=== PATIENT | male | born 1985 | race Caucasian/White ===

== ENCOUNTER 2016-04-29 16:17 | Inpatient (IN) | payer MEDICAID ==
[~2016-04-29] VITALS: Ht 175.3 cm; Wt 91.5 kg
[~2016-04-29 16:17] MED LIST: QUET25TA PO
[2016-04-29] MEDS ORDERED: LORazepam 2 MG/ML VIAL ONE (16:22)
[2016-04-29] MEDS ORDERED: HALOPERIDOL LACTATE 5 MG/ML VIAL ONE (16:22)
[2016-04-29] MEDS ORDERED: DiphenhydrAMINE HCL 50 MG/ML VIAL ONE (16:22)
[2016-04-29] MEDS ORDERED: HALOPERIDOL LACTATE 5 MG/ML VIAL IM ONE (16:30)
[2016-04-29] MEDS ORDERED: LORazepam 2 MG/ML VIAL IM ONE (16:30)
[2016-04-29] MEDS ORDERED: DiphenhydrAMINE HCL 50 MG/ML VIAL IM ONE (16:30)
[2016-04-29 17:22] LABS: BASOPHILS % (AUTO) 0.9 % (0.0-2.0); EOSINOPHILS % (AUTO) 2.6 % (1.0-6.0); HEMATOCRIT 42.7 % (41-53); LYMPHOCYTES # (AUTO) 2.3 K/uL (1.0-4.8); LYMPHOCYTES % (AUTO) 23.6 % (22.0-44.0); MEAN CORPUSCULAR HGB CONC 32.9 G/dL (31.0-37.0); MEAN CORPUSCULAR VOLUME 85 fL (80-100); MONOCYTES % (AUTO) 10.7 % (2.0-9.0); NEUTROPHILS % (AUTO) 62.2 % (40.0-70.0); PLATELET COUNT (AUTO) 290 K/uL (150-450); RED BLOOD CELL COUNT(AUTO) 5.01 MIL/uL (4.50-5.90); RED CELL DISTRIBUTION WIDTH 14.4 % (11.5-14.5); WHITE BLOOD COUNT (AUTO) 9.7 K/uL (4.5-11.0)
[2016-04-29 17:31] LABS: ANION GAP 10 mmol/L (8-16); CALCIUM, TOTAL 9.2 mg/dL (8.8-10.5); CARBON DIOXIDE 27 mmol/L (22-29); CHLORIDE 104 mmol/L (98-107); CREATININE 0.97 mg/dL (0.60-1.30); GLOMERULAR FILTR. RATE CALC > 60 mL/min (>60); POTASSIUM 3.7 mmol/L (3.5-5.1); SODIUM SERUM 141 mmol/L (136-145); UREA NITROGEN, BLOOD 17 mg/dL (7-18)
[2016-04-29 17:38] LABS: ALANINE AMINOTRANSFERASE 32 U/L (12-78); ALBUMIN 3.9 g/dL (3.4-5.0); ASPARTATE AMINOTRANSFERASE 43 U/L (15-37); BILIRUBIN,TOTAL 0.5 mg/dL (0.1-1.0); TOTAL PROTEIN, SERUM 7.4 g/dL (6.4-8.2)
[2016-04-29] MEDS ORDERED: ZOLPIDEM TARTRATE 10 MG TABLET PO PRN (19:45)
[2016-04-29] MEDS ORDERED: PERMETHRIN 5% 60 GM CREAM TP ONE (19:45)
[2016-04-29 22:20] VITALS: BP 113/66
[2016-04-30] MEDS ORDERED: INFLUENZA VIRUS VACCINE QVS 2016-17 (3YR+)/PF 60 MCG/0.5 ML SYRINGE IM ONE (06:45)
[2016-04-30] MEDS: QUEtiapine FUMARATE 200 MG TABLET PO SCH (21:00)
[2016-05-01] MEDS: LORazepam 2 MG TABLET PO PRN (15:54)
[2016-05-01] MEDS: QUEtiapine FUMARATE 200 MG TABLET PO SCH (21:34)
[2016-05-02] MEDS: QUEtiapine FUMARATE 200 MG TABLET PO SCH (20:45)
[2016-05-03] MEDS: QUEtiapine FUMARATE 100 MG TABLET PO PRN (15:39)
[2016-05-03 17:38] VITALS: BP 122/69
[2016-05-03] MEDS: QUEtiapine FUMARATE 200 MG TABLET PO SCH (22:04)
[2016-05-04] MEDS: QUEtiapine FUMARATE 100 MG TABLET PO PRN (12:17)
[2016-05-04] MEDS: QUEtiapine FUMARATE 200 MG TABLET PO SCH (21:10)
[2016-05-05] MEDS: QUEtiapine FUMARATE 100 MG TABLET PO PRN (15:45)
[2016-05-05] MEDS: LORazepam 2 MG TABLET PO PRN (15:46)
[2016-05-05] MEDS: QUEtiapine FUMARATE 200 MG TABLET PO SCH (22:07)
[2016-05-06] MEDS: LORazepam 2 MG TABLET PO PRN ×2 (10:06→14:30)
[2016-05-06] MEDS: QUEtiapine FUMARATE 100 MG TABLET PO PRN ×2 (10:07→14:30)
[2016-05-06] MEDS: QUEtiapine FUMARATE 200 MG TABLET PO SCH (21:37)
[2016-05-07] MEDS: LORazepam 2 MG TABLET PO PRN (09:33)
[2016-05-07] MEDS: QUEtiapine FUMARATE 100 MG TABLET PO PRN (09:34)
== END 2016-05-07 11:00 | disposition home or self-care (01) | DRG 750 ==
LOC: EEVIPCON 16:18 → EMS 16:18 → MERGE 20:00 → 3EC 20:00
DX: F20.0 Paranoid schizophrenia (principal); R45.851 Suicidal ideations; Z78.1 Physical restraint status; F15.10 Other stimulant abuse, uncomplicated; F31.9 Bipolar disorder, unspecified; R79.89 Other specified abnormal findings of blood chemistry; F17.210 Nicotine dependence, cigarettes, uncomplicated; Z28.21 Immunization not carried out because of patient refusal; Z79.899 Other long term (current) drug therapy; Z59.0 Homelessness; Z98.890 Other specified postprocedural states
CPT/HCPCS: 96372; 99285; G0480; J1200; J1630; J2060

== ENCOUNTER 2016-05-13 20:39 | Inpatient (IN) | payer MEDICAID ==
[~2016-05-13] VITALS: Ht 182.9 cm; Wt 91.2 kg
[2016-05-13 20:56] LABS: BASOPHILS # (AUTO) 0.06 K/uL (0.00-0.20); BASOPHILS % (AUTO) 0.3 % (0.0-2.0); EOSINOPHILS # (AUTO) 0.07 K/uL (0.00-0.70); EOSINOPHILS % (AUTO) 0.41 % (1.0-6.0); HEMATOCRIT 44.6 % (41-53); HEMOGLOBIN 15.1 g/dL (13.5-17.5); LYMPHOCYTES # (AUTO) 2.3 K/uL (1.0-4.8); LYMPHOCYTES % (AUTO) 12.5 % (22.0-44.0); MEAN CORPUSCULAR HEMOGLOBIN 28.5 pg (26.0-34.0); MEAN CORPUSCULAR HGB CONC 33.9 G/dL (31.0-37.0); MEAN CORPUSCULAR VOLUME 84 fL (80-100); MONOCYTES # (AUTO) 0.6 K/uL (0.1-1.0); MONOCYTES % (AUTO) 3.5 % (2.0-9.0); NEUTROPHILS % (AUTO) 83.3 % (40.0-70.0); PLATELET COUNT (AUTO) 301 K/uL (150-450); RED BLOOD CELL COUNT(AUTO) 5.31 MIL/uL (4.50-5.90)
[2016-05-13 21:06] LABS: ANION GAP 7 mmol/L (8-16); CALCIUM, TOTAL 9.4 mg/dL (8.8-10.5); CARBON DIOXIDE 30 mmol/L (22-29); CHLORIDE 101 mmol/L (98-107); CREATININE 0.88 mg/dL (0.60-1.30); GLOMERULAR FILTR. RATE CALC > 60 mL/min (>60); SODIUM SERUM 138 mmol/L (136-145); UREA NITROGEN, BLOOD 9 mg/dL (7-18)
[2016-05-13 21:12] LABS: ALANINE AMINOTRANSFERASE 48 U/L (12-78); ALBUMIN 4.1 g/dL (3.4-5.0); ASPARTATE AMINOTRANSFERASE 28 U/L (15-37); BILIRUBIN,TOTAL 0.3 mg/dL (0.1-1.0); RBC MORPHOLOGY COMMENT NORMAL RBC MORPH
[2016-05-13] MEDS ORDERED: HALOPERIDOL LACTATE 5 MG/ML VIAL IM ONE (21:15)
[2016-05-13] MEDS ORDERED: DiphenhydrAMINE HCL 50 MG/ML VIAL IM ONE (21:15)
[2016-05-13] MEDS ORDERED: LORazepam 2 MG/ML VIAL IM ONE (21:15)
[2016-05-14] MEDS ORDERED: ZOLPIDEM TARTRATE 10 MG TABLET PO PRN (00:15)
[2016-05-14 00:52] VITALS: BP 115/50
[2016-05-14 08:04] VITALS: BP_SYST 104; BP_SYST 137; BP_DIAS 67; BP_DIAS 84
[2016-05-14] MEDS: LORazepam 2 MG TABLET PO PRN ×2 (09:34→16:37)
[2016-05-14] MEDS: HALOPERIDOL 5 MG TABLET PO PRN ×2 (09:34→16:37)
[2016-05-14 13:40] LABS: APPEARANCE,URINE CLEAR (CLEAR); GLUCOSE, URINE (UA) NEGATIVE (NEGATIVE); PROTEIN,URINE NEGATIVE (NEGATIVE)
[2016-05-14 13:41] LABS: ADD UA MICROSCOPIC NO; KETONES,URINE NEGATIVE (NEGATIVE); LEUKOCYTE ESTERASE ,URINE NEGATIVE (NEGATIVE); OCCULT BLOOD,URINE NEGATIVE (NEGATIVE)
[2016-05-15] MEDS: HALOPERIDOL 5 MG TABLET PO PRN ×2 (09:48→16:09)
[2016-05-15] MEDS: LORazepam 2 MG TABLET PO PRN ×3 (09:48→20:32)
[2016-05-15] MEDS ORDERED: INFLUENZA VIRUS VACCINE QVS 2016-17 (3YR+)/PF 60 MCG/0.5 ML SYRINGE IM ONE (15:30)
[2016-05-15 16:12] VITALS: BP 123/66
[2016-05-15] MEDS: QUEtiapine FUMARATE 200 MG TABLET PO SCH (20:32)
[2016-05-16] MEDS: LORazepam 2 MG TABLET PO PRN ×2 (13:09→20:26)
[2016-05-16 16:03] VITALS: BP 118/67
[2016-05-16] MEDS: QUEtiapine FUMARATE 200 MG TABLET PO SCH (20:26)
[2016-05-17] MEDS ORDERED: QUET200T PO (10:31)
[2016-05-17 16:00] VITALS: BP 132/68
[2016-05-17] MEDS: LORazepam 2 MG TABLET PO PRN (16:11)
[2016-05-17] MEDS: CEPHALEXIN MONOHYDRATE 500 MG CAPSULE PO SCH (16:11)
[2016-05-17] MEDS: HALOPERIDOL 5 MG TABLET PO PRN (16:11)
[2016-05-17] MEDS: SULFAMETHOX/TRIMETH DS 800-160 MG/TABLET PO SCH (16:11)
[2016-05-17] MEDS: QUEtiapine FUMARATE 200 MG TABLET PO SCH (20:24)
[2016-05-18 08:28] VITALS: BP 117/68
[2016-05-18] MEDS: SULFAMETHOX/TRIMETH DS 800-160 MG/TABLET PO SCH ×2 (09:15→17:13)
[2016-05-18] MEDS: CEPHALEXIN MONOHYDRATE 500 MG CAPSULE PO SCH ×2 (09:16→17:13)
[2016-05-18 16:00] VITALS: BP 116/76
[2016-05-18] MEDS: LORazepam 2 MG TABLET PO PRN (17:12)
[2016-05-18] MEDS: HALOPERIDOL 5 MG TABLET PO PRN (17:12)
[2016-05-18] MEDS: QUEtiapine FUMARATE 200 MG TABLET PO SCH (21:03)
[2016-05-19] MEDS: CEPHALEXIN MONOHYDRATE 500 MG CAPSULE PO SCH (09:40)
[2016-05-19] MEDS: LORazepam 2 MG TABLET PO PRN (09:40)
[2016-05-19] MEDS: SULFAMETHOX/TRIMETH DS 800-160 MG/TABLET PO SCH (09:40)
[2016-05-19] MEDS ORDERED: SULF1TAB42 PO (10:15)
[2016-05-19] MEDS ORDERED: CEPH-582 PO (10:16)
== END 2016-05-19 15:15 | disposition home or self-care (01) | DRG 750 ==
LOC: EDBD → EMS 20:42 → B3A 05-14 01:46
PROVIDERS: ADMIT Psychiatry & Neurology Psychiatry
DX: F20.0 Paranoid schizophrenia (principal); L02.416 Cutaneous abscess of left lower limb; F15.90 Other stimulant use, unspecified, uncomplicated; F17.210 Nicotine dependence, cigarettes, uncomplicated; Z78.1 Physical restraint status; Z28.21 Immunization not carried out because of patient refusal
CPT/HCPCS: 87070; 87081; 87205; 96372; 99285; A0429; G0480; J1200; J1630; J2060

== ENCOUNTER 2016-05-17 10:06 | Emergency (ER) | payer MEDICAID ==
[~2016-05-17] VITALS: Ht 175.3 cm; Wt 79.5 kg
[2016-05-17 10:28] VITALS: BP 139/79
[2016-05-17] MEDS ORDERED: QUET200T PO (10:31)
[2016-05-17 11:34] LABS: BASOPHILS % (AUTO) 0.6 % (0.0-2.0); EOSINOPHILS % (AUTO) 1.5 % (1.0-6.0); HEMATOCRIT 42.8 % (41-53); HEMOGLOBIN 13.9 g/dL (13.5-17.5); LYMPHOCYTES # (AUTO) 1.7 K/uL (1.0-4.8); LYMPHOCYTES % (AUTO) 14.3 % (22.0-44.0); MEAN CORPUSCULAR HEMOGLOBIN 27.6 pg (26.0-34.0); MEAN CORPUSCULAR HGB CONC 32.5 G/dL (31.0-37.0); MEAN CORPUSCULAR VOLUME 85 fL (80-100); MONOCYTES # (AUTO) 1.2 K/uL (0.1-1.0); MONOCYTES % (AUTO) 9.8 % (2.0-9.0); NEUTROPHILS # (AUTO) 8.7 K/uL (1.8-7.7); NEUTROPHILS % (AUTO) 73.8 % (40.0-70.0); PLATELET COUNT (AUTO) 312 K/uL (150-450); RED BLOOD CELL COUNT(AUTO) 5.04 MIL/uL (4.50-5.90); RED CELL DISTRIBUTION WIDTH 14.2 % (11.5-14.5); WHITE BLOOD COUNT (AUTO) 11.8 K/uL (4.5-11.0)
[2016-05-17 11:44] LABS: ANION GAP 7 mmol/L (8-16); CALCIUM, TOTAL 9.3 mg/dL (8.8-10.5); CARBON DIOXIDE 30 mmol/L (22-29); CHLORIDE 102 mmol/L (98-107); CREATININE 0.78 mg/dL (0.60-1.30); GLOMERULAR FILTR. RATE CALC > 60 mL/min (>60); POTASSIUM 4.1 mmol/L (3.5-5.1); SODIUM SERUM 139 mmol/L (136-145); UREA NITROGEN, BLOOD 10 mg/dL (7-18)
[2016-05-17 11:50] LABS: ALANINE AMINOTRANSFERASE 39 U/L (12-78); ALBUMIN 3.5 g/dL (3.4-5.0); ASPARTATE AMINOTRANSFERASE 21 U/L (15-37); BILIRUBIN,TOTAL 0.3 mg/dL (0.1-1.0); TOTAL PROTEIN, SERUM 7.8 g/dL (6.4-8.2)
[2016-05-17] MEDS ORDERED: LIDOCAINE HCL/PF 1% 2 ML VIAL IM ONE (12:30)
[2016-05-17] MEDS ORDERED: CefTRIAXone SODIUM 1 GM/VIAL IM ONE (12:30)
== END 2016-05-17 13:47 | disposition home or self-care (01) ==
LOC: EDBD → EMS 10:07
DX: L03.115 Cellulitis of right lower limb (principal); F17.210 Nicotine dependence, cigarettes, uncomplicated
CPT/HCPCS: 36415; 80053; 80307; 85025; 96372; 99284; G0480; J0696; J3490

== ENCOUNTER 2016-05-22 22:59 | Inpatient (IN) | payer MEDICAID ==
[~2016-05-22] VITALS: Ht 175.3 cm; Wt 92.3 kg
[~2016-05-22 22:59] MED LIST changes: +CEPH-582 PO; +QUET200T PO; +SULF1TAB42 PO
[2016-05-22 23:17] LABS: BASOPHILS % (AUTO) 0.6 % (0.0-2.0); EOSINOPHILS % (AUTO) 1.4 % (1.0-6.0); HEMATOCRIT 48.1 % (41-53); HEMOGLOBIN 15.7 g/dL (13.5-17.5); LYMPHOCYTES # (AUTO) 2.1 K/uL (1.0-4.8); LYMPHOCYTES % (AUTO) 16.6 % (22.0-44.0); MEAN CORPUSCULAR HEMOGLOBIN 27.3 pg (26.0-34.0); MEAN CORPUSCULAR HGB CONC 32.6 G/dL (31.0-37.0); MEAN CORPUSCULAR VOLUME 84 fL (80-100); MONOCYTES # (AUTO) 0.6 K/uL (0.1-1.0); MONOCYTES % (AUTO) 4.6 % (2.0-9.0); NEUTROPHILS # (AUTO) 9.9 K/uL (1.8-7.7); NEUTROPHILS % (AUTO) 76.8 % (40.0-70.0); PLATELET COUNT (AUTO) 500 K/uL (150-450); RED BLOOD CELL COUNT(AUTO) 5.75 MIL/uL (4.50-5.90); RED CELL DISTRIBUTION WIDTH 13.9 % (11.5-14.5); WHITE BLOOD COUNT (AUTO) 12.9 K/uL (4.5-11.0)
[2016-05-22 23:26] LABS: ANION GAP 10 mmol/L (8-16); CALCIUM, TOTAL 9.6 mg/dL (8.8-10.5); CARBON DIOXIDE 26 mmol/L (22-29); CHLORIDE 101 mmol/L (98-107); CREATININE 0.91 mg/dL (0.60-1.30); GLOMERULAR FILTR. RATE CALC > 60 mL/min (>60); POTASSIUM 4.2 mmol/L (3.5-5.1); SODIUM SERUM 137 mmol/L (136-145); UREA NITROGEN, BLOOD 3 mg/dL (7-18)
[2016-05-22 23:32] LABS: ALANINE AMINOTRANSFERASE 51 U/L (12-78); ALBUMIN 4.4 g/dL (3.4-5.0); ASPARTATE AMINOTRANSFERASE 34 U/L (15-37); BILIRUBIN,TOTAL 0.2 mg/dL (0.1-1.0); TOTAL PROTEIN, SERUM 9.1 g/dL (6.4-8.2)
[2016-05-23] MEDS ORDERED: LORazepam 2 MG/ML VIAL IM ONE ×2 (00:45→11:30)
[2016-05-23] MEDS ORDERED: DiphenhydrAMINE HCL 50 MG/ML VIAL IM ONE ×2 (00:45→11:30)
[2016-05-23] MEDS ORDERED: HALOPERIDOL LACTATE 5 MG/ML VIAL IM ONE ×2 (00:45→11:30)
[2016-05-23] MEDS: HALOPERIDOL 5 MG TABLET PO PRN ×2 (09:26→18:05)
[2016-05-23 10:03] LABS: APPEARANCE,URINE CLEAR (CLEAR); GLUCOSE, URINE (UA) NEGATIVE (NEGATIVE); OCCULT BLOOD,URINE NEGATIVE (NEGATIVE); PROTEIN,URINE NEGATIVE (NEGATIVE)
[2016-05-23 10:04] LABS: ADD UA MICROSCOPIC NO; KETONES,URINE NEGATIVE (NEGATIVE); LEUKOCYTE ESTERASE ,URINE NEGATIVE (NEGATIVE)
[2016-05-23 13:20] VITALS: BP 148/93
[2016-05-23] MEDS: ZOLPIDEM TARTRATE 10 MG TABLET PO PRN (23:15)
[2016-05-24] MEDS: HALOPERIDOL 5 MG TABLET PO PRN ×2 (07:42→16:00)
[2016-05-24] MEDS: LORazepam 2 MG TABLET PO PRN ×2 (07:42→16:00)
[2016-05-24 09:42] VITALS: BP 147/85
[2016-05-24 18:06] VITALS: BP 147/66
[2016-05-24] MEDS: QUEtiapine FUMARATE 300 MG TABLET PO SCH (22:19)
[2016-05-25 08:42] VITALS: BP 113/70
[2016-05-25 16:00] VITALS: BP 131/78
[2016-05-25] MEDS: HALOPERIDOL 5 MG TABLET PO PRN (18:45)
[2016-05-25] MEDS: LORazepam 2 MG TABLET PO PRN (18:45)
[2016-05-25] MEDS: QUEtiapine FUMARATE 300 MG TABLET PO SCH (21:12)
[2016-05-26 08:59] VITALS: BP 105/62
[2016-05-26] MEDS: LORazepam 2 MG TABLET PO PRN (15:55)
[2016-05-26] MEDS: HALOPERIDOL 5 MG TABLET PO PRN (15:56)
[2016-05-26 17:16] VITALS: BP 136/71
[2016-05-26] MEDS: QUEtiapine FUMARATE 300 MG TABLET PO SCH (20:55)
[2016-05-27 08:30] VITALS: BP 139/74
[2016-05-27] MEDS: HALOPERIDOL 5 MG TABLET PO PRN (15:38)
[2016-05-27] MEDS: LORazepam 2 MG TABLET PO PRN (15:38)
[2016-05-27 16:00] VITALS: BP 112/78
[2016-05-27] MEDS: ZOLPIDEM TARTRATE 10 MG TABLET PO PRN (20:52)
[2016-05-27] MEDS: QUEtiapine FUMARATE 300 MG TABLET PO SCH (20:52)
[2016-05-28 08:30] VITALS: BP 121/82
[2016-05-28] MEDS ORDERED: QUET300T2 PO (10:31)
== END 2016-05-28 12:30 | disposition home or self-care (01) | DRG 750 ==
LOC: EMS 23:01 → MERGE 05-23 10:43 → 3EC 05-23 10:43
DX: F25.1 Schizoaffective disorder, depressive type (principal); R45.851 Suicidal ideations; Z91.14 Patient's other noncompliance with medication regimen; I10 Essential (primary) hypertension; F17.210 Nicotine dependence, cigarettes, uncomplicated; S90.811A Abrasion, right foot, initial encounter; F15.90 Other stimulant use, unspecified, uncomplicated; J30.9 Allergic rhinitis, unspecified; K21.9 Gastro-esophageal reflux disease without esophagitis; D47.3 Essential (hemorrhagic) thrombocythemia; Z71.51 Drug abuse counseling and surveillance of drug abuser; Z79.899 Other long term (current) drug therapy; Y04.8XXA Assault by other bodily force, initial encounter; Y93.89 Activity, other specified; Y92.89 Other specified places as the place of occurrence of the external cause; Y99.8 Other external cause status
CPT/HCPCS: 87081; 96372; 99285; G0480; J1200; J1630; J2060

== ENCOUNTER 2016-06-11 19:47 | Inpatient (IN) | payer MEDICAID ==
[~2016-06-11] VITALS: Ht 175.3 cm; Wt 89.4 kg
[~2016-06-11 19:47] MED LIST changes: -QUET25TA PO
[2016-06-11] MEDS ORDERED: HALOPERIDOL LACTATE 5 MG/ML VIAL IM ONE (20:15)
[2016-06-11] MEDS ORDERED: DiphenhydrAMINE HCL 50 MG/ML VIAL IM ONE (20:15)
[2016-06-11] MEDS ORDERED: LORazepam 2 MG/ML VIAL IM ONE (20:15)
[2016-06-11 21:47] LABS: BASOPHILS % (AUTO) 0.7 % (0.0-2.0); EOSINOPHILS % (AUTO) 1.9 % (1.0-6.0); HEMATOCRIT 42.1 % (41-53); HEMOGLOBIN 13.8 g/dL (13.5-17.5); LYMPHOCYTES % (AUTO) 23.4 % (22.0-44.0); MEAN CORPUSCULAR HEMOGLOBIN 27.8 pg (26.0-34.0); MEAN CORPUSCULAR HGB CONC 32.7 G/dL (31.0-37.0); MEAN CORPUSCULAR VOLUME 85 fL (80-100); MONOCYTES # (AUTO) 0.5 K/uL (0.1-1.0); MONOCYTES % (AUTO) 6.4 % (2.0-9.0); NEUTROPHILS # (AUTO) 5.8 K/uL (1.8-7.7); NEUTROPHILS % (AUTO) 67.6 % (40.0-70.0); PLATELET COUNT (AUTO) 314 K/uL (150-450); RED BLOOD CELL COUNT(AUTO) 4.95 MIL/uL (4.50-5.90); RED CELL DISTRIBUTION WIDTH 13.3 % (11.5-14.5); WHITE BLOOD COUNT (AUTO) 8.6 K/uL (4.5-11.0)
[2016-06-11 22:07] LABS: ANION GAP 9 mmol/L (8-16); CALCIUM, TOTAL 8.6 mg/dL (8.8-10.5); CARBON DIOXIDE 26 mmol/L (22-29); CHLORIDE 104 mmol/L (98-107); CREATININE 0.68 mg/dL (0.60-1.30); GLOMERULAR FILTR. RATE CALC > 60 mL/min (>60); POTASSIUM 3.8 mmol/L (3.5-5.1); SODIUM SERUM 139 mmol/L (136-145); UREA NITROGEN, BLOOD 11 mg/dL (7-18)
[2016-06-11 22:13] LABS: ALANINE AMINOTRANSFERASE 31 U/L (12-78); ALBUMIN 3.7 g/dL (3.4-5.0); ASPARTATE AMINOTRANSFERASE 23 U/L (15-37); BILIRUBIN,TOTAL 0.2 mg/dL (0.1-1.0); TOTAL PROTEIN, SERUM 7.5 g/dL (6.4-8.2)
[2016-06-11] MEDS ORDERED: ZOLPIDEM TARTRATE 10 MG TABLET PO PRN (22:30)
[2016-06-12] MEDS: LORazepam 2 MG TABLET PO PRN (11:46)
[2016-06-12] MEDS: HALOPERIDOL 5 MG TABLET PO PRN (11:46)
[2016-06-12 13:30] VITALS: BP 112/71
[2016-06-12] MEDS ORDERED: INFLUENZA VIRUS VACCINE QVS 2016-17 (3YR+)/PF 60 MCG/0.5 ML SYRINGE IM ONE (14:15)
[2016-06-12] MEDS: QUEtiapine FUMARATE 200 MG TABLET PO SCH (20:46)
[2016-06-13] MEDS: HALOPERIDOL 5 MG TABLET PO PRN (16:35)
[2016-06-13] MEDS: LORazepam 2 MG TABLET PO PRN (16:35)
[2016-06-13] MEDS: QUEtiapine FUMARATE 200 MG TABLET PO SCH (20:23)
[2016-06-14 08:14] VITALS: BP 112/78
[2016-06-14] MEDS: LORazepam 2 MG TABLET PO PRN (14:43)
[2016-06-14] MEDS: HALOPERIDOL 5 MG TABLET PO PRN (14:43)
[2016-06-14] MEDS: QUEtiapine FUMARATE 200 MG TABLET PO SCH (20:02)
[2016-06-15 16:30] VITALS: BP 110/76
[2016-06-15] MEDS: LORazepam 2 MG TABLET PO PRN (18:40)
[2016-06-15] MEDS: QUEtiapine FUMARATE 200 MG TABLET PO SCH (20:53)
[2016-06-16] MEDS: HALOPERIDOL 5 MG TABLET PO PRN ×2 (08:42→16:41)
[2016-06-16] MEDS: LORazepam 2 MG TABLET PO PRN ×2 (08:42→16:41)
[2016-06-16 08:43] VITALS: BP 121/73
[2016-06-16 16:28] VITALS: BP 118/84
[2016-06-16] MEDS: QUEtiapine FUMARATE 200 MG TABLET PO SCH (20:25)
[2016-06-17] MEDS: HALOPERIDOL 5 MG TABLET PO PRN ×2 (09:03→16:27)
[2016-06-17] MEDS: LORazepam 2 MG TABLET PO PRN ×2 (09:03→16:27)
[2016-06-17] MEDS: QUEtiapine FUMARATE 200 MG TABLET PO SCH (20:33)
[2016-06-18 06:39] VITALS: BP 115/61
[2016-06-18 08:14] VITALS: BP 118/67
[2016-06-18 16:00] VITALS: BP 116/86
[2016-06-18] MEDS: LORazepam 2 MG TABLET PO PRN (16:03)
[2016-06-18] MEDS: HALOPERIDOL 5 MG TABLET PO PRN (16:03)
[2016-06-18] MEDS: QUEtiapine FUMARATE 200 MG TABLET PO SCH (20:39)
[2016-06-19 08:27] VITALS: BP 112/78
[2016-06-19] MEDS: HALOPERIDOL 5 MG TABLET PO PRN ×2 (09:00→16:36)
[2016-06-19] MEDS: LORazepam 2 MG TABLET PO PRN ×2 (09:00→16:36)
[2016-06-19 18:20] VITALS: BP 104/63
[2016-06-19 18:35] VITALS: BP 94/52
[2016-06-19 18:50] VITALS: BP 162/76
[2016-06-19] MEDS: QUEtiapine FUMARATE 200 MG TABLET PO SCH (21:00)
[2016-06-20 00:47] VITALS: BP 119/72
[2016-06-20] MEDS ORDERED: ACETAMINOPHEN 325 MG TABLET PO PRN (09:30)
== END 2016-06-20 15:00 | disposition home or self-care (01) | DRG 750 ==
LOC: EMS 19:52 → B3A 06-12 10:17 → B2S 06-20 11:12
DX: F20.0 Paranoid schizophrenia (principal); F17.210 Nicotine dependence, cigarettes, uncomplicated; F15.90 Other stimulant use, unspecified, uncomplicated; Z79.899 Other long term (current) drug therapy; Z28.21 Immunization not carried out because of patient refusal; Z71.51 Drug abuse counseling and surveillance of drug abuser
CPT/HCPCS: 87081; 96372; 99285; G0480; J1200; J1630; J2060

== ENCOUNTER 2016-06-19 19:19 | Emergency (ER) | payer MEDICAID ==
[~2016-06-19] VITALS: Ht 177.8 cm; Wt 86.4 kg
[~2016-06-19 19:19] MED LIST changes: -CEPH-582 PO; -SULF1TAB42 PO
[2016-06-19 23:00] VITALS: BP 128/77
== END 2016-06-19 23:41 | disposition home or self-care (01) ==
LOC: EMS 19:23
DX: S06.0X9A Concussion with loss of consciousness of unspecified duration, initial encounter (principal); S02.2XXA Fracture of nasal bones, initial encounter for closed fracture; S05.12XA Contusion of eyeball and orbital tissues, left eye, initial encounter; F17.210 Nicotine dependence, cigarettes, uncomplicated; Y04.2XXA Assault by strike against or bumped into by another person, initial encounter; Y93.89 Activity, other specified; Y92.89 Other specified places as the place of occurrence of the external cause; Y99.8 Other external cause status
CPT/HCPCS: 70450; 70486; 99284

== ENCOUNTER 2016-12-13 15:58 | Inpatient (IN) | payer MEDICAID ==
[~2016-12-13] VITALS: Ht 177.8 cm; Wt 97.3 kg
[~2016-12-13 15:58] MED LIST changes: +QUET300T2 PO
[2016-12-13] MEDS ORDERED: IOVERSOL 350 MG/ML 100 ML VIAL ONE (16:11)
[2016-12-13 16:14] LABS: BASOPHILS % (AUTO) 0.6 % (0.0-2.0); EOSINOPHILS % (AUTO) 0.8 % (1.0-6.0); HEMATOCRIT 49.3 % (41-53); HEMOGLOBIN 16.6 g/dL (13.5-17.5); LYMPHOCYTES # (AUTO) 1.4 K/uL (1.0-4.8); MEAN CORPUSCULAR HEMOGLOBIN 28.9 pg (26.0-34.0); MEAN CORPUSCULAR HGB CONC 33.7 G/dL (31.0-37.0); MEAN CORPUSCULAR VOLUME 86 fL (80-100); MONOCYTES # (AUTO) 0.5 K/uL (0.1-1.0); MONOCYTES % (AUTO) 3.9 % (2.0-9.0); NEUTROPHILS % (AUTO) 83.7 % (40.0-70.0); PLATELET COUNT (AUTO) 239 K/uL (150-450); RED BLOOD CELL COUNT(AUTO) 5.77 MIL/uL (4.50-5.90); RED CELL DISTRIBUTION WIDTH 14.3 % (11.5-14.5); WHITE BLOOD COUNT (AUTO) 13.1 K/uL (4.5-11.0)
[2016-12-13 16:21] LABS: ANION GAP 11 mmol/L (8-16); CARBON DIOXIDE 26 mmol/L (22-29); CHLORIDE 100 mmol/L (98-107); CREATININE 1.09 mg/dL (0.60-1.30); GLOMERULAR FILTR. RATE CALC > 60 mL/min (>60); POTASSIUM 4.3 mmol/L (3.5-5.1); SODIUM SERUM 137 mmol/L (136-145); UREA NITROGEN, BLOOD 10 mg/dL (7-18)
[2016-12-13 16:26] LABS: ALANINE AMINOTRANSFERASE 25 U/L (12-78); ALBUMIN 5.1 g/dL (3.4-5.0); ASPARTATE AMINOTRANSFERASE 26 U/L (15-37); BILIRUBIN,TOTAL 0.5 mg/dL (0.1-1.0); CREATINE KINASE, TOTAL 448 U/L (39-308); TOTAL PROTEIN, SERUM 8.6 g/dL (6.4-8.2)
[2016-12-13 16:32] LABS: TROPONIN I < 0.02 ng/mL (0.00-0.05)
[2016-12-13 16:39] LABS: AMMONIA 13 umol/L (11-32)
[2016-12-13] MEDS ORDERED: NALOXONE HCL 1 MG/ML 2 ML SYG IVP ONE ×2 (17:00→17:15)
[2016-12-13 17:01] LABS: CREATINE KINASE MB 2.5 ng/mL (0-5)
[2016-12-13 17:02] LABS: PROTHROMBIN TIME 10.4 SEC (9.4-11.6)
[2016-12-13 17:13] LABS: ADD UA MICROSCOPIC NO; APPEARANCE,URINE CLEAR (CLEAR); GLUCOSE, URINE (UA) NEGATIVE (NEGATIVE); KETONES,URINE NEGATIVE (NEGATIVE); LEUKOCYTE ESTERASE ,URINE NEGATIVE (NEGATIVE); OCCULT BLOOD,URINE NEGATIVE (NEGATIVE); PH,URINE 6.5 (5.0-8.0); PROTEIN,URINE NEGATIVE (NEGATIVE)
[2016-12-13] MEDS ORDERED: FLUMAZENIL 0.1 MG/ML 5 ML VIAL IVP ONE (17:15)
[2016-12-13] MEDS ORDERED: SODIUM CHLORIDE 0.9% 1,000 ML IV ONE (17:15)
[2016-12-13 17:23] LABS: SALICYLATE 3.3 mg/dL (2.8-20.0)
[2016-12-13 17:40] LABS: ACETAMINOPHEN < 2 mcg/mL (10-30)
[2016-12-13] MEDS ORDERED: ONDANSETRON HCL 4 MG/2 ML VIAL IVP PRN (18:15)
[2016-12-13] MEDS ORDERED: ACETAMINOPHEN 325 MG TABLET PO PRN (18:15)
[2016-12-13] MEDS ORDERED: 0.9% SODIUM CHLORIDE 10 ML SYRINGE IVP PRN (18:15)
[2016-12-13 19:32] VITALS: BP 132/76
[2016-12-13 23:52] VITALS: BP 145/81
[2016-12-14] MEDS ORDERED: LORazepam 2 MG/ML VIAL ONE (00:27)
[2016-12-14] MEDS ORDERED: HALOPERIDOL LACTATE 5 MG/ML VIAL ONE (00:29)
[2016-12-14] MEDS ORDERED: LORazepam 2 MG/ML VIAL IVP ONE (00:30)
[2016-12-14] MEDS ORDERED: HALOPERIDOL LACTATE 5 MG/ML VIAL IM ONE ×2 (00:30→13:00)
[2016-12-14 00:45] VITALS: BP 154/94
[2016-12-14] MEDS ORDERED: ONDANSETRON HCL 4 MG/2 ML VIAL IVP PRN (01:30)
[2016-12-14] MEDS: DOCUSATE SODIUM 100 MG CAPSULE PO SCH ×3 (01:30→20:16)
[2016-12-14] MEDS ORDERED: OxyCODONE HCL/ACETAMINOPHEN 5-325 MG TABLET PO PRN ×2 (01:30)
[2016-12-14] MEDS ORDERED: 0.9% SODIUM CHLORIDE 10 ML SYRINGE IVP PRN (01:30)
[2016-12-14 04:30] VITALS: BP 116/69
[2016-12-14 06:51] LABS: BASOPHILS % (AUTO) 0.4 % (0.0-2.0); EOSINOPHILS % (AUTO) 0.8 % (1.0-6.0); HEMATOCRIT 47.2 % (41-53); LYMPHOCYTES # (AUTO) 1.5 K/uL (1.0-4.8); LYMPHOCYTES % (AUTO) 11.4 % (22.0-44.0); MEAN CORPUSCULAR HEMOGLOBIN 28.9 pg (26.0-34.0); MEAN CORPUSCULAR HGB CONC 33.9 G/dL (31.0-37.0); MEAN CORPUSCULAR VOLUME 85 fL (80-100); MONOCYTES # (AUTO) 0.7 K/uL (0.1-1.0); MONOCYTES % (AUTO) 5.3 % (2.0-9.0); NEUTROPHILS # (AUTO) 11.1 K/uL (1.8-7.7); NEUTROPHILS % (AUTO) 82.1 % (40.0-70.0); PLATELET COUNT (AUTO) 228 K/uL (150-450); RED BLOOD CELL COUNT(AUTO) 5.53 MIL/uL (4.50-5.90); RED CELL DISTRIBUTION WIDTH 14.4 % (11.5-14.5); WHITE BLOOD COUNT (AUTO) 13.5 K/uL (4.5-11.0)
[2016-12-14 06:58] LABS: ALANINE AMINOTRANSFERASE 23 U/L (12-78); ALBUMIN 4.4 g/dL (3.4-5.0); ANION GAP 14 mmol/L (8-16); ASPARTATE AMINOTRANSFERASE 21 U/L (15-37); BILIRUBIN,TOTAL 0.5 mg/dL (0.1-1.0); CALCIUM, TOTAL 9.6 mg/dL (8.8-10.5); CARBON DIOXIDE 21 mmol/L (22-29); CHLORIDE 107 mmol/L (98-107); CREATININE 0.96 mg/dL (0.60-1.30); GLOMERULAR FILTR. RATE CALC > 60 mL/min (>60); POTASSIUM 4.1 mmol/L (3.5-5.1); SODIUM SERUM 142 mmol/L (136-145); UREA NITROGEN, BLOOD 9 mg/dL (7-18)
[2016-12-14 08:15] VITALS: BP 135/87
[2016-12-14] MEDS: PANTOPRAZOLE SODIUM 40 MG/VIAL IVP SCH (09:00)
[2016-12-14] MEDS ORDERED: OLANZapine 7.5 MG TABLET PO ONE (10:45)
[2016-12-14] MEDS: LORazepam 2 MG TABLET PO PRN ×2 (10:53→18:29)
[2016-12-14 11:40] VITALS: BP 141/85
[2016-12-14] MEDS ORDERED: DiphenhydrAMINE HCL 50 MG/ML VIAL IM ONE (13:00)
[2016-12-14] MEDS ORDERED: LORazepam 2 MG/ML VIAL IM ONE (13:00)
[2016-12-14 16:07] VITALS: BP 145/92
[2016-12-14 19:59] VITALS: BP 114/97
[2016-12-14] MEDS: QUEtiapine FUMARATE 200 MG TABLET PO SCH (20:16)
[2016-12-14] MEDS ORDERED: QUEtiapine FUMARATE 300 MG TABLET PO SCH (21:00)
[2016-12-15] VITALS: BP 149/86
[2016-12-15] MEDS: LORazepam 2 MG TABLET PO PRN ×3 (00:06→15:12)
[2016-12-15 04:03] VITALS: BP 143/87
[2016-12-15 06:57] LABS: BASOPHILS # (AUTO) 0.05 K/uL (0.00-0.20); BASOPHILS % (AUTO) 0.5 % (0.0-2.0); EOSINOPHILS # (AUTO) 0.24 K/uL (0.00-0.70); EOSINOPHILS % (AUTO) 2.42 % (1.0-6.0); HEMATOCRIT 42.5 % (41-53); HEMOGLOBIN 14.3 g/dL (13.5-17.5); LYMPHOCYTES # (AUTO) 1.7 K/uL (1.0-4.8); LYMPHOCYTES % (AUTO) 17.3 % (22.0-44.0); MEAN CORPUSCULAR HEMOGLOBIN 28.5 pg (26.0-34.0); MEAN CORPUSCULAR HGB CONC 33.6 G/dL (31.0-37.0); MEAN CORPUSCULAR VOLUME 85 fL (80-100); MONOCYTES # (AUTO) 0.7 K/uL (0.1-1.0); NEUTROPHILS # (AUTO) 7.2 K/uL (1.8-7.7); NEUTROPHILS % (AUTO) 72.8 % (40.0-70.0); PLATELET COUNT (AUTO) 236 K/uL (150-450); RED BLOOD CELL COUNT(AUTO) 5.02 MIL/uL (4.50-5.90); RED CELL DISTRIBUTION WIDTH 14.5 % (11.5-14.5); WHITE BLOOD COUNT (AUTO) 9.9 K/uL (4.5-11.0)
[2016-12-15 07:33] LABS: ANION GAP 14 mmol/L (8-16); CALCIUM, TOTAL 9.3 mg/dL (8.8-10.5); CARBON DIOXIDE 22 mmol/L (22-29); CHLORIDE 105 mmol/L (98-107); CREATININE 0.95 mg/dL (0.60-1.30); GLOMERULAR FILTR. RATE CALC > 60 mL/min (>60); POTASSIUM 3.6 mmol/L (3.5-5.1); SODIUM SERUM 141 mmol/L (136-145); UREA NITROGEN, BLOOD 10 mg/dL (7-18)
[2016-12-15 08:00] VITALS: BP 139/81
[2016-12-15] MEDS: DOCUSATE SODIUM 100 MG CAPSULE PO SCH ×2 (09:33→21:00)
[2016-12-15] MEDS: PANTOPRAZOLE SODIUM 40 MG/VIAL IVP SCH (09:33)
[2016-12-15 12:32] VITALS: BP 120/65
[2016-12-15 16:30] VITALS: BP 126/74
[2016-12-15 20:59] VITALS: BP 108/66
[2016-12-15] MEDS: QUEtiapine FUMARATE 200 MG TABLET PO SCH (21:00)
[2016-12-16 00:01] VITALS: BP 101/56
[2016-12-16 04:56] VITALS: BP 101/53
[2016-12-16] MEDS: PANTOPRAZOLE SODIUM 40 MG/VIAL IVP SCH (07:58)
[2016-12-16] MEDS: DOCUSATE SODIUM 100 MG CAPSULE PO SCH (07:58)
[2016-12-16 12:00] VITALS: BP 110/56
[2016-12-16] MEDS ORDERED: INFLUENZA VIRUS VACCINE QVS 2017-18 (3YR+)/PF 60 MCG/0.5 ML SYRINGE IM ONE (15:15)
[2016-12-16] MEDS ORDERED: VENL25TA47 PO (15:31)
== END 2016-12-16 16:35 | disposition home or self-care (01) | DRG 52 ==
LOC: EMS 15:59 → 6N 18:17
PROVIDERS: ADMIT Internal Medicine; ATTEND Internal Medicine
DX: G92 Toxic encephalopathy (principal); R45.851 Suicidal ideations; F20.9 Schizophrenia, unspecified; M10.9 Gout, unspecified; F10.10 Alcohol abuse, uncomplicated; F12.10 Cannabis abuse, uncomplicated; F17.210 Nicotine dependence, cigarettes, uncomplicated; F29 Unspecified psychosis not due to a substance or known physiological condition; R73.9 Hyperglycemia, unspecified; Z79.899 Other long term (current) drug therapy; R31.9 Hematuria, unspecified
CPT/HCPCS: 70496; 72125; 87081; 90471; 93005; 96360; 96361; 96374; 96375; 96376; 99285; C9113; G0480; G0481; J1200; J1630; J2060; J2310; J3490

== ENCOUNTER 2017-01-20 15:27 | Inpatient (IN) | payer MEDICAID ==
[~2017-01-20] VITALS: Ht 175.3 cm; Wt 96.1 kg
[~2017-01-20 15:27] MED LIST changes: -QUET300T2 PO; +VENL25TA47 PO
[2017-01-20 17:58] LABS: BASOPHILS % (AUTO) 0.8 % (0.0-2.0); EOSINOPHILS # (AUTO) 0.21 K/uL (0.00-0.70); EOSINOPHILS % (AUTO) 1.59 % (1.0-6.0); HEMATOCRIT 45.9 % (41-53); HEMOGLOBIN 15.4 g/dL (13.5-17.5); LYMPHOCYTES # (AUTO) 2.1 K/uL (1.0-4.8); LYMPHOCYTES % (AUTO) 15.8 % (22.0-44.0); MEAN CORPUSCULAR HEMOGLOBIN 28.1 pg (26.0-34.0); MEAN CORPUSCULAR HGB CONC 33.5 G/dL (31.0-37.0); MEAN CORPUSCULAR VOLUME 84 fL (80-100); MONOCYTES % (AUTO) 7.7 % (2.0-9.0); NEUTROPHILS # (AUTO) 9.8 K/uL (1.8-7.7); NEUTROPHILS % (AUTO) 74.2 % (40.0-70.0); PLATELET COUNT (AUTO) 307 K/uL (150-450); RED BLOOD CELL COUNT(AUTO) 5.47 MIL/uL (4.50-5.90); WHITE BLOOD COUNT (AUTO) 13.2 K/uL (4.5-11.0)
[2017-01-20 18:06] LABS: ANION GAP 15 mmol/L (8-16); CALCIUM, TOTAL 9.7 mg/dL (8.8-10.5); CARBON DIOXIDE 24 mmol/L (22-29); CHLORIDE 99 mmol/L (98-107); CREATININE 0.82 mg/dL (0.60-1.30); GLOMERULAR FILTR. RATE CALC > 60 mL/min (>60); POTASSIUM 3.8 mmol/L (3.5-5.1); SODIUM SERUM 138 mmol/L (136-145); UREA NITROGEN, BLOOD 9 mg/dL (7-18)
[2017-01-20] MEDS ORDERED: HALOPERIDOL LACTATE 5 MG/ML VIAL IM ONE (18:15)
[2017-01-20] MEDS ORDERED: DiphenhydrAMINE HCL 50 MG/ML VIAL IM ONE (18:15)
[2017-01-20] MEDS ORDERED: LORazepam 2 MG/ML VIAL IM ONE (18:15)
[2017-01-20 18:17] LABS: ALANINE AMINOTRANSFERASE 29 U/L (12-78); ALBUMIN 4.6 g/dL (3.4-5.0); ASPARTATE AMINOTRANSFERASE 38 U/L (15-37); BILIRUBIN,TOTAL 0.6 mg/dL (0.1-1.0); TOTAL PROTEIN, SERUM 8.3 g/dL (6.4-8.2)
[2017-01-20] MEDS ORDERED: ZOLPIDEM TARTRATE 10 MG TABLET PO PRN (19:00)
[2017-01-20 20:37] VITALS: BP 120/80
[2017-01-20] MEDS: QUEtiapine FUMARATE 200 MG TABLET PO SCH (20:49)
[2017-01-20] MEDS ORDERED: -PHARMACY VACCINE NOTE- MISC ONE ×2 (22:15)
[2017-01-21 06:53] VITALS: BP 122/77
[2017-01-21 08:23] VITALS: BP 121/61
[2017-01-21] MEDS: LORazepam 2 MG TABLET PO PRN (10:38)
[2017-01-21] MEDS: HALOPERIDOL 5 MG TABLET PO PRN (10:38)
[2017-01-21 16:44] VITALS: BP 137/64
[2017-01-21] MEDS: QUEtiapine FUMARATE 200 MG TABLET PO SCH (20:32)
[2017-01-22 06:40] VITALS: BP 130/60
[2017-01-22 08:37] VITALS: BP 123/78
[2017-01-22] MEDS: LORazepam 2 MG TABLET PO PRN ×2 (10:30→16:32)
[2017-01-22 16:00] VITALS: BP 116/67
[2017-01-22] MEDS: HALOPERIDOL 5 MG TABLET PO PRN (18:00)
[2017-01-22] MEDS: QUEtiapine FUMARATE 200 MG TABLET PO SCH (20:41)
[2017-01-23 07:06] VITALS: BP 119/61
[2017-01-23 09:07] VITALS: BP 133/77
[2017-01-23] MEDS: LORazepam 2 MG TABLET PO PRN (09:34)
== END 2017-01-23 13:20 | disposition home or self-care (01) | DRG 750 ==
LOC: EMS 15:28 → B3A 19:27
DX: F20.0 Paranoid schizophrenia (principal); D72.829 Elevated white blood cell count, unspecified; F12.10 Cannabis abuse, uncomplicated; F17.210 Nicotine dependence, cigarettes, uncomplicated; Z79.899 Other long term (current) drug therapy
CPT/HCPCS: 96372; 99285; G0480; J1200; J1630; J2060

== ENCOUNTER 2017-02-03 16:28 | Inpatient (IN) | payer MEDICAID ==
[~2017-02-03] VITALS: Ht 175.3 cm; Wt 99.1 kg
[~2017-02-03 16:28] MED LIST changes: -VENL25TA47 PO
[2017-02-03] MEDS ORDERED: QUEtiapine FUMARATE 100 MG TABLET PO PRN (18:30)
[2017-02-03 18:56] VITALS: BP 121/76
[2017-02-03 19:18] VITALS: BP 125/66
[2017-02-03] MEDS: QUEtiapine FUMARATE 200 MG TABLET PO SCH (20:12)
[2017-02-04 00:11] VITALS: BP 118/63
[2017-02-04 08:09] VITALS: BP 105/62
[2017-02-04 08:12] LABS: BASOPHILS % (AUTO) 0.8 % (0.0-2.0); EOSINOPHILS % (AUTO) 3.3 % (1.0-6.0); HEMOGLOBIN 15.3 g/dL (13.5-17.5); LYMPHOCYTES # (AUTO) 2.4 K/uL (1.0-4.8); LYMPHOCYTES % (AUTO) 33.1 % (22.0-44.0); MEAN CORPUSCULAR HEMOGLOBIN 28.5 pg (26.0-34.0); MEAN CORPUSCULAR HGB CONC 33.9 G/dL (31.0-37.0); MEAN CORPUSCULAR VOLUME 84 fL (80-100); MONOCYTES # (AUTO) 0.6 K/uL (0.1-1.0); MONOCYTES % (AUTO) 7.8 % (2.0-9.0); NEUTROPHILS # (AUTO) 3.9 K/uL (1.8-7.7); PLATELET COUNT (AUTO) 242 K/uL (150-450); RED BLOOD CELL COUNT(AUTO) 5.35 MIL/uL (4.50-5.90); WHITE BLOOD COUNT (AUTO) 7.1 K/uL (4.5-11.0)
[2017-02-04 08:31] LABS: ALANINE AMINOTRANSFERASE 32 U/L (12-78); ANION GAP 6 mmol/L (8-16); ASPARTATE AMINOTRANSFERASE 21 U/L (15-37); BILIRUBIN,TOTAL 0.3 mg/dL (0.1-1.0); CALCIUM, TOTAL 9.3 mg/dL (8.8-10.5); CARBON DIOXIDE 31 mmol/L (22-29); CHLORIDE 102 mmol/L (98-107); CREATININE 0.94 mg/dL (0.60-1.30); GLOMERULAR FILTR. RATE CALC > 60 mL/min (>60); POTASSIUM 4.1 mmol/L (3.5-5.1); SODIUM SERUM 139 mmol/L (136-145); TOTAL PROTEIN, SERUM 7.1 g/dL (6.4-8.2); UREA NITROGEN, BLOOD 13 mg/dL (7-18)
[2017-02-04] MEDS: NICOTINE 14 MG/24 HOUR PATCH TD SCH (08:50)
[2017-02-04 08:52] LABS: GLUCOSE, URINE (UA) NEGATIVE (NEGATIVE); KETONES,URINE NEGATIVE (NEGATIVE); LEUKOCYTE ESTERASE ,URINE NEGATIVE (NEGATIVE); OCCULT BLOOD,URINE NEGATIVE (NEGATIVE); PH,URINE 6.5 (5.0-8.0); PROTEIN,URINE NEGATIVE (NEGATIVE)
[2017-02-04 08:53] LABS: ADD UA MICROSCOPIC NO; APPEARANCE,URINE CLEAR (CLEAR)
[2017-02-04 16:00] VITALS: BP 129/75
[2017-02-04] MEDS: LORazepam 2 MG TABLET PO PRN (17:20)
[2017-02-04] MEDS: QUEtiapine FUMARATE 200 MG TABLET PO SCH (21:07)
[2017-02-04] MEDS: ZOLPIDEM TARTRATE 10 MG TABLET PO PRN (21:07)
[2017-02-05 06:44] VITALS: BP 126/70
[2017-02-05 08:00] VITALS: BP 106/61
[2017-02-05] MEDS: NICOTINE 14 MG/24 HOUR PATCH TD SCH (08:21)
[2017-02-05] MEDS: LORazepam 2 MG TABLET PO PRN (15:13)
[2017-02-05 16:00] VITALS: BP 130/76
[2017-02-05] MEDS: ZOLPIDEM TARTRATE 10 MG TABLET PO PRN (20:05)
[2017-02-05] MEDS: QUEtiapine FUMARATE 200 MG TABLET PO SCH (20:05)
[2017-02-06 06:36] VITALS: BP 126/68
[2017-02-06 08:06] VITALS: BP 124/63
[2017-02-06] MEDS: NICOTINE 14 MG/24 HOUR PATCH TD SCH (08:52)
[2017-02-06] MEDS: MUPIROCIN CALCIUM 2% 22 GM OINTMENT NASAL SCH ×2 (14:55→16:22)
[2017-02-06 18:16] VITALS: BP 157/82
[2017-02-06] MEDS: QUEtiapine FUMARATE 200 MG TABLET PO SCH (20:48)
[2017-02-07 10:21] VITALS: BP 134/86
[2017-02-07] MEDS: LORazepam 2 MG TABLET PO PRN (12:09)
[2017-02-07] MEDS: MUPIROCIN CALCIUM 2% 22 GM OINTMENT NASAL SCH ×2 (12:10→17:36)
[2017-02-07] MEDS: NICOTINE 14 MG/24 HOUR PATCH TD SCH (12:10)
[2017-02-07 17:55] VITALS: BP 139/90
[2017-02-07] MEDS: QUEtiapine FUMARATE 200 MG TABLET PO SCH (21:20)
[2017-02-08 08:05] VITALS: BP 116/70
[2017-02-08] MEDS: MUPIROCIN CALCIUM 2% 22 GM OINTMENT NASAL SCH ×2 (09:00→16:25)
[2017-02-08] MEDS: NICOTINE 14 MG/24 HOUR PATCH TD SCH (09:00)
[2017-02-08 16:30] VITALS: BP 132/78
[2017-02-08] MEDS: QUEtiapine FUMARATE 200 MG TABLET PO SCH (20:48)
[2017-02-09 00:30] VITALS: BP 128/80
[2017-02-09 08:30] VITALS: BP 132/78
[2017-02-09] MEDS: NICOTINE 14 MG/24 HOUR PATCH TD SCH (09:42)
[2017-02-09] MEDS: MUPIROCIN CALCIUM 2% 22 GM OINTMENT NASAL SCH ×2 (09:42→16:49)
[2017-02-09 16:15] VITALS: BP 147/83
[2017-02-09] MEDS: QUEtiapine FUMARATE 200 MG TABLET PO SCH (20:28)
[2017-02-10 08:59] VITALS: BP 114/61
[2017-02-10] MEDS: NICOTINE 14 MG/24 HOUR PATCH TD SCH (09:48)
[2017-02-10] MEDS: MUPIROCIN CALCIUM 2% 22 GM OINTMENT NASAL SCH ×2 (10:10→16:09)
[2017-02-10 17:00] VITALS: BP 145/75
[2017-02-10] MEDS: LORazepam 2 MG TABLET PO PRN (17:17)
[2017-02-10] MEDS: QUEtiapine FUMARATE 200 MG TABLET PO SCH (20:17)
[2017-02-11 08:46] VITALS: BP 102/59
[2017-02-11] MEDS: NICOTINE 14 MG/24 HOUR PATCH TD SCH (09:39)
[2017-02-11] MEDS ORDERED: MUPI15CR TP (10:11)
[2017-02-11] MEDS: MUPIROCIN CALCIUM 2% 22 GM OINTMENT NASAL SCH (11:11)
== END 2017-02-11 15:00 | disposition home or self-care (01) | DRG 750 ==
LOC: B3A 18:29 → 3EI 02-06 12:21
DX: F25.1 Schizoaffective disorder, depressive type (principal); M62.82 Rhabdomyolysis; D72.829 Elevated white blood cell count, unspecified; F12.10 Cannabis abuse, uncomplicated; Z79.899 Other long term (current) drug therapy; Z22.322 Carrier or suspected carrier of Methicillin resistant Staphylococcus aureus
CPT/HCPCS: 80307; 87081

== ENCOUNTER 2017-06-12 17:03 | Inpatient (IN) | payer MEDICAID ==
[~2017-06-12] VITALS: Ht 175.3 cm; Wt 88.9 kg
[~2017-06-12 17:03] MED LIST changes: +MUPI15CR TP
[2017-06-12 17:29] LABS: BASOPHILS % (AUTO) 0.6 % (0.0-2.0); EOSINOPHILS % (AUTO) 1.2 % (1.0-6.0); HEMATOCRIT 42.4 % (41-53); HEMOGLOBIN 14.6 g/dL (13.5-17.5); LYMPHOCYTES # (AUTO) 2.3 K/uL (1.0-4.8); LYMPHOCYTES % (AUTO) 20.6 % (22.0-44.0); MEAN CORPUSCULAR HEMOGLOBIN 28.7 pg (26.0-34.0); MEAN CORPUSCULAR HGB CONC 34.3 G/dL (31.0-37.0); MEAN CORPUSCULAR VOLUME 83 fL (80-100); MONOCYTES # (AUTO) 0.5 K/uL (0.1-1.0); MONOCYTES % (AUTO) 4.8 % (2.0-9.0); NEUTROPHILS # (AUTO) 8.2 K/uL (1.8-7.7); NEUTROPHILS % (AUTO) 72.8 % (40.0-70.0); PLATELET COUNT (AUTO) 293 K/uL (150-450); RED BLOOD CELL COUNT(AUTO) 5.08 MIL/uL (4.50-5.90)
[2017-06-12 17:40] LABS: ANION GAP 10 mmol/L (8-16); CALCIUM, TOTAL 9.3 mg/dL (8.8-10.5); CARBON DIOXIDE 25 mmol/L (22-29); CHLORIDE 104 mmol/L (98-107); CREATININE 0.61 mg/dL (0.60-1.30); GLOMERULAR FILTR. RATE CALC > 60 mL/min (>60); GLUCOSE,RANDOM 137 mg/dL (70-110); POTASSIUM 3.6 mmol/L (3.5-5.1); SODIUM SERUM 139 mmol/L (136-145); UREA NITROGEN, BLOOD 13 mg/dL (7-18)
[2017-06-12 17:46] LABS: ALANINE AMINOTRANSFERASE 32 U/L (12-78); ALKALINE PHOSPHATASE 83 U/L (46-116); ASPARTATE AMINOTRANSFERASE 24 U/L (15-37); BILIRUBIN,TOTAL 0.2 mg/dL (0.1-1.0); TOTAL PROTEIN, SERUM 7.3 g/dL (6.4-8.2)
[2017-06-12] MEDS ORDERED: LORazepam 2 MG/ML VIAL IM ONE (18:45)
[2017-06-12] MEDS ORDERED: DiphenhydrAMINE HCL 50 MG/ML VIAL IM ONE (18:45)
[2017-06-12] MEDS ORDERED: HALOPERIDOL LACTATE 5 MG/ML VIAL IM ONE (18:45)
[2017-06-12] MEDS ORDERED: HALOPERIDOL 5 MG TABLET PO PRN (19:45)
[2017-06-12] MEDS ORDERED: LORazepam 2 MG TABLET PO PRN (19:45)
[2017-06-12] MEDS ORDERED: ZOLPIDEM TARTRATE 10 MG TABLET PO PRN (19:45)
[2017-06-12 19:46] LABS: AMPHET/METH SCREEN,URINE POSITIVE (NEGATIVE); BARBITURATE SCREEN, URINE NEGATIVE (NEGATIVE); BENZODIAZEPINES SCREEN,URINE NEGATIVE (NEGATIVE); CANNABINOID SCREEN,URINE POSITIVE (NEGATIVE); COCAINE SCREEN,URINE POSITIVE (NEGATIVE); METHADONE SCREEN, URINE NEGATIVE (NEGATIVE); OPIATE SCREEN,URINE NEGATIVE (NEGATIVE)
[2017-06-12 19:48] LABS: PHENCYCLIDINE SCREEN,URINE NEGATIVE (NEGATIVE)
[2017-06-12 20:44] VITALS: BP 127/78
[2017-06-12 21:04] LABS: APPEARANCE,URINE CLOUDY (CLEAR); BILIRUBIN,URINE NEGATIVE (NEGATIVE); GLUCOSE, URINE (UA) NEGATIVE (NEGATIVE); KETONES,URINE NEGATIVE (NEGATIVE); LEUKOCYTE ESTERASE ,URINE NEGATIVE (NEGATIVE); NITRATE,URINE NEGATIVE (NEGATIVE); OCCULT BLOOD,URINE NEGATIVE (NEGATIVE); PROTEIN,URINE NEGATIVE (NEGATIVE)
[2017-06-13] MEDS: NICOTINE 21 MG/24 HOUR PATCH TD SCH (09:06)
[2017-06-13 17:18] VITALS: BP 111/72
[2017-06-13] MEDS: QUEtiapine FUMARATE 200 MG TABLET PO SCH (20:30)
[2017-06-14 09:20] VITALS: BP 103/59
[2017-06-14] MEDS: NICOTINE 21 MG/24 HOUR PATCH TD SCH ×2 (09:26→11:32)
[2017-06-14 16:41] VITALS: BP 127/77
[2017-06-14] MEDS: QUEtiapine FUMARATE 200 MG TABLET PO SCH (20:47)
[2017-06-15 08:20] VITALS: BP 129/91
[2017-06-15] MEDS: NICOTINE 21 MG/24 HOUR PATCH TD SCH (10:58)
== END 2017-06-15 14:55 | disposition home or self-care (01) | DRG 750 ==
LOC: EMS 17:04 → 3EI 19:55
PROVIDERS: ADMIT Psychiatry & Neurology Child & Adolescent Psychiatry; ATTEND Psychiatry & Neurology Child & Adolescent Psychiatry
DX: F20.0 Paranoid schizophrenia (principal); F14.10 Cocaine abuse, uncomplicated; D72.829 Elevated white blood cell count, unspecified; F19.10 Other psychoactive substance abuse, uncomplicated; F15.90 Other stimulant use, unspecified, uncomplicated; F17.210 Nicotine dependence, cigarettes, uncomplicated; F12.10 Cannabis abuse, uncomplicated; Z79.899 Other long term (current) drug therapy
CPT/HCPCS: 87081; G0480; J1200; J1630; J2060

== ENCOUNTER 2017-08-03 18:47 | Inpatient (IN) | payer MEDICAID ==
[~2017-08-03] VITALS: Ht 172.7 cm; Wt 96.6 kg
[~2017-08-03 18:47] MED LIST changes: -MUPI15CR TP
[2017-08-03] MEDS ORDERED: PERTUSS(ACELL),DIPH,TET VAC/PF 0.5 ML VIAL IM ONE (20:00)
[2017-08-03] MEDS ORDERED: VANCOMYCIN HCL 1 GM/D5% WATER 200 ML IV ONE ×2 (20:00→23:00)
[2017-08-03] MEDS ORDERED: SODIUM CHLORIDE 0.9% 1,000 ML IV ONE (20:00)
[2017-08-03 20:13] LABS: BASOPHILS % (AUTO) 0.1 % (0.0-2.0); EOSINOPHILS % (AUTO) 2.1 % (1.0-6.0); HEMATOCRIT 38.9 % (41-53); HEMOGLOBIN 13.5 g/dL (13.5-17.5); LYMPHOCYTES # (AUTO) 0.3 K/uL (1.0-4.8); LYMPHOCYTES % (AUTO) 2.5 % (22.0-44.0); MEAN CORPUSCULAR HEMOGLOBIN 28.4 pg (26.0-34.0); MEAN CORPUSCULAR HGB CONC 34.8 G/dL (31.0-37.0); MEAN CORPUSCULAR VOLUME 82 fL (80-100); MONOCYTES # (AUTO) 0.8 K/uL (0.1-1.0); MONOCYTES % (AUTO) 6.5 % (2.0-9.0); NEUTROPHILS # (AUTO) 10.6 K/uL (1.8-7.7); NEUTROPHILS % (AUTO) 88.8 % (40.0-70.0); PLATELET COUNT (AUTO) 159 K/uL (150-450); RED BLOOD CELL COUNT(AUTO) 4.77 MIL/uL (4.50-5.90); RED CELL DISTRIBUTION WIDTH 13.6 % (11.5-14.5)
[2017-08-03 20:22] LABS: ANION GAP 6 mmol/L (8-16); CARBON DIOXIDE 30 mmol/L (22-29); CHLORIDE 96 mmol/L (98-107); CREATININE 0.75 mg/dL (0.60-1.30); GLOMERULAR FILTR. RATE CALC > 60 mL/min (>60); GLUCOSE,RANDOM 121 mg/dL (70-110); POTASSIUM 3.2 mmol/L (3.5-5.1); SODIUM SERUM 132 mmol/L (136-145); UREA NITROGEN, BLOOD 10 mg/dL (7-18)
[2017-08-03 20:27] LABS: ALANINE AMINOTRANSFERASE 50 U/L (12-78); ALBUMIN 2.5 g/dL (3.4-5.0); ALKALINE PHOSPHATASE 115 U/L (46-116); ASPARTATE AMINOTRANSFERASE 36 U/L (15-37); BILIRUBIN,TOTAL 0.3 mg/dL (0.1-1.0); TOTAL PROTEIN, SERUM 6.2 g/dL (6.4-8.2)
[2017-08-03] MEDS ORDERED: POTASSIUM CHLORIDE 20 MEQ ER TABLET PO ONE (21:15)
[2017-08-03] MEDS ORDERED: IPRATROPIUM BROMIDE 0.5 MG/2.5 ML NEB SOLUTION NEB PRN (21:30)
[2017-08-03] MEDS ORDERED: BISACODYL 10 MG RECTAL RECTAL SUPPOSITORY PR PRN (21:30)
[2017-08-03] MEDS ORDERED: ALBUTEROL SULFATE 2.5 MG/0.5 ML NEB SOLUTION NEB PRN (21:30)
[2017-08-03] MEDS ORDERED: POTASSIUM CHL 10 MEQ/WATER 50 ML IV PRN (21:30)
[2017-08-03] MEDS ORDERED: MAGNESIUM HYDROXIDE SUSPENSION 30 ML UDCUP PO PRN (21:30)
[2017-08-03] MEDS ORDERED: MAGNESIUM SULFATE 2 GM in DEXTROSE 5%-WATER 50 ML IV PRN (21:30)
[2017-08-03] MEDS ORDERED: MAGNESIUM OXIDE 400 MG TABLET PO PRN (21:30)
[2017-08-03] MEDS ORDERED: ONDANSETRON HCL 4 MG/2 ML VIAL IVP PRN (21:30)
[2017-08-03] MEDS ORDERED: ZOLPIDEM TARTRATE 5 MG TABLET PO PRN (21:30)
[2017-08-03] MEDS ORDERED: MAGNESIUM SULFATE 4 GM/WATER 100 ML IV PRN (21:30)
[2017-08-03 21:40] VITALS: BP 123/59
[2017-08-03 21:43] LABS: AMPHET/METH SCREEN,URINE NEGATIVE (NEGATIVE); BARBITURATE SCREEN, URINE NEGATIVE (NEGATIVE); BENZODIAZEPINES SCREEN,URINE NEGATIVE (NEGATIVE); CANNABINOID SCREEN,URINE NEGATIVE (NEGATIVE); COCAINE SCREEN,URINE NEGATIVE (NEGATIVE); METHADONE SCREEN, URINE NEGATIVE (NEGATIVE); OPIATE SCREEN,URINE NEGATIVE (NEGATIVE)
[2017-08-03 21:53] LABS: APPEARANCE,URINE CLEAR (CLEAR); BILIRUBIN,URINE NEGATIVE (NEGATIVE); GLUCOSE, URINE (UA) NEGATIVE (NEGATIVE); KETONES,URINE NEGATIVE (NEGATIVE); LEUKOCYTE ESTERASE ,URINE NEGATIVE (NEGATIVE); NITRATE,URINE NEGATIVE (NEGATIVE); OCCULT BLOOD,URINE NEGATIVE (NEGATIVE); PROTEIN,URINE NEGATIVE (NEGATIVE)
[2017-08-03 21:55] LABS: PHENCYCLIDINE SCREEN,URINE NEGATIVE (NEGATIVE)
[2017-08-03 23:16] VITALS: BP 125/54
[2017-08-03] MEDS: ACETAMINOPHEN 325 MG TABLET PO PRN (23:29)
[2017-08-03] MEDS: POTASSIUM CHLORIDE 20 MEQ ER TABLET PO PRN (23:29)
[2017-08-04 04:45] VITALS: BP 128/71
[2017-08-04 05:46] LABS: ALANINE AMINOTRANSFERASE 47 U/L (12-78); ALBUMIN 2.4 g/dL (3.4-5.0); ALKALINE PHOSPHATASE 110 U/L (46-116); ANION GAP 5 mmol/L (8-16); ASPARTATE AMINOTRANSFERASE 24 U/L (15-37); BILIRUBIN,TOTAL 0.4 mg/dL (0.1-1.0); CALCIUM, TOTAL 8.1 mg/dL (8.8-10.5); CARBON DIOXIDE 31 mmol/L (22-29); CHLORIDE 101 mmol/L (98-107); CREATININE 0.85 mg/dL (0.60-1.30); GLOMERULAR FILTR. RATE CALC > 60 mL/min (>60); GLUCOSE,RANDOM 102 mg/dL (70-110); PHOSPHORUS 2.2 mg/dL (2.5-4.9); POTASSIUM 3.6 mmol/L (3.5-5.1); SODIUM SERUM 137 mmol/L (136-145); UREA NITROGEN, BLOOD 8 mg/dL (7-18)
[2017-08-04 06:04] LABS: HEMATOCRIT 38.3 % (41-53); HEMOGLOBIN 13.4 g/dL (13.5-17.5); MEAN CORPUSCULAR HEMOGLOBIN 28.6 pg (26.0-34.0); MEAN CORPUSCULAR HGB CONC 34.9 G/dL (31.0-37.0); MEAN CORPUSCULAR VOLUME 82 fL (80-100); PLATELET COUNT (AUTO) 166 K/uL (150-450); RED BLOOD CELL COUNT(AUTO) 4.67 MIL/uL (4.50-5.90); RED CELL DISTRIBUTION WIDTH 13.9 % (11.5-14.5)
[2017-08-04 07:11] VITALS: BP 122/65
[2017-08-04] MEDS: PANTOPRAZOLE SODIUM 40 MG DR TABLET PO SCH (08:45)
[2017-08-04] MEDS: HEPARIN SODIUM,PORCINE 5,000 UNITS/ML VIAL SQ SCH ×2 (08:45→19:49)
[2017-08-04] MEDS: VANCOMYCIN HCL 1.5 GM in DEXTROSE 5%-WATER 250 ML IV SCH ×3 (08:46→23:29)
[2017-08-04 09:36] LABS: BAND NEUTROPHILS % (MANUAL) 9 % (0-5); EOSINOPHILS % (MANUAL) 5 % (1-6); LYMPHOCYTES % (MANUAL) 1 % (22-44); MONOCYTES % (MANUAL) 5 % (2-9); SEGMENTED NEUTROPHILS % 80 % (40-70)
[2017-08-04 12:23] VITALS: BP 138/71
[2017-08-04] MEDS: OxyCODONE HCL/ACETAMINOPHEN 5-325 MG TABLET PO PRN ×2 (12:32→19:49)
[2017-08-04 15:24] VITALS: BP 129/61
[2017-08-04 19:29] VITALS: BP 137/55
[2017-08-04 23:17] VITALS: BP 113/61
[2017-08-04] MEDS ORDERED: SODIUM CHLORIDE 0.9% 500 ML IV ONE (23:28)
[2017-08-05 03:43] VITALS: BP 119/67
[2017-08-05 06:45] LABS: ANION GAP 6 mmol/L (8-16); CALCIUM, TOTAL 8.2 mg/dL (8.8-10.5); CARBON DIOXIDE 31 mmol/L (22-29); CHLORIDE 98 mmol/L (98-107); CREATININE 0.76 mg/dL (0.60-1.30); GLOMERULAR FILTR. RATE CALC > 60 mL/min (>60); GLUCOSE,RANDOM 89 mg/dL (70-110); POTASSIUM 3.1 mmol/L (3.5-5.1); SODIUM SERUM 135 mmol/L (136-145); UREA NITROGEN, BLOOD 6 mg/dL (7-18); VANCOMYCIN,RANDOM 21.3 mcg/mL (25.0-50.0)
[2017-08-05 07:58] VITALS: BP 131/68
[2017-08-05] MEDS: VANCOMYCIN HCL 1.5 GM in DEXTROSE 5%-WATER 250 ML IV SCH ×2 (10:23→16:50)
[2017-08-05] MEDS: PANTOPRAZOLE SODIUM 40 MG DR TABLET PO SCH (10:23)
[2017-08-05] MEDS: HEPARIN SODIUM,PORCINE 5,000 UNITS/ML VIAL SQ SCH (10:24)
[2017-08-05] MEDS: POTASSIUM CHLORIDE 20 MEQ ER TABLET PO PRN ×2 (10:25→16:50)
[2017-08-05 11:00] VITALS: BP 112/66
[2017-08-05] MEDS: SILVER SULFADIAZINE 1% 25 GM CREAM TP SCH (11:37)
[2017-08-05 11:41] VITALS: BP 123/72
[2017-08-05] MEDS: ACETAMINOPHEN 325 MG TABLET PO PRN (14:27)
[2017-08-05 16:08] VITALS: BP 127/60
[2017-08-05 23:42] VITALS: BP 134/68
[2017-08-06] MEDS: HEPARIN SODIUM,PORCINE 5,000 UNITS/ML VIAL SQ SCH ×2 (00:45→08:46)
[2017-08-06] MEDS: VANCOMYCIN HCL 1.5 GM in DEXTROSE 5%-WATER 250 ML IV SCH ×4 (00:47→16:00)
[2017-08-06 04:47] VITALS: BP 111/61
[2017-08-06 07:04] LABS: ANION GAP 8 mmol/L (8-16); CALCIUM, TOTAL 8.3 mg/dL (8.8-10.5); CARBON DIOXIDE 29 mmol/L (22-29); CHLORIDE 99 mmol/L (98-107); CREATININE 0.68 mg/dL (0.60-1.30); GLOMERULAR FILTR. RATE CALC > 60 mL/min (>60); GLUCOSE,RANDOM 87 mg/dL (70-110); POTASSIUM 3.3 mmol/L (3.5-5.1); SODIUM SERUM 136 mmol/L (136-145); UREA NITROGEN, BLOOD 8 mg/dL (7-18)
[2017-08-06 07:52] VITALS: BP 129/60
[2017-08-06] MEDS: PANTOPRAZOLE SODIUM 40 MG DR TABLET PO SCH (08:45)
[2017-08-06] MEDS: SILVER SULFADIAZINE 1% 25 GM CREAM TP SCH (09:00)
[2017-08-06 10:22] LABS: PROTHROMBIN TIME 10.7 SEC (9.4-11.6)
[2017-08-06] MEDS ORDERED: HEPARIN SODIUM 1000 UNITS/NS 500 ML ONE (11:19)
[2017-08-06 12:18] VITALS: BP 130/75
[2017-08-06] MEDS ORDERED: SODIUM CL IRRIG SOLN BOTTLE 250 ML IRRIG ONE (13:44)
[2017-08-06] MEDS: OxyCODONE HCL/ACETAMINOPHEN 5-325 MG TABLET PO PRN (13:47)
[2017-08-06 16:07] VITALS: BP 115/80
[2017-08-06] MEDS: POTASSIUM CHLORIDE 20 MEQ ER TABLET PO PRN (17:54)
== END 2017-08-06 18:00 | DRG 720 ==
LOC: EMS 18:48 → 6N 20:49
PROVIDERS: ADMIT Internal Medicine; ATTEND Internal Medicine
PROC: 02HV33Z Insertion of Infusion Device into Superior Vena Cava, Percutaneous Approach (ICD-10-PCS; principal; 2017-08-06)
PROC: B548ZZA Ultrasonography of Superior Vena Cava, Guidance (ICD-10-PCS; 2017-08-06)
DX: A41.9 Sepsis, unspecified organism (principal); E87.1 Hypo-osmolality and hyponatremia; L03.115 Cellulitis of right lower limb; F20.9 Schizophrenia, unspecified; L03.116 Cellulitis of left lower limb; E87.6 Hypokalemia; F10.10 Alcohol abuse, uncomplicated; F12.10 Cannabis abuse, uncomplicated; F14.10 Cocaine abuse, uncomplicated; F15.10 Other stimulant abuse, uncomplicated; F17.210 Nicotine dependence, cigarettes, uncomplicated; B95.61 Methicillin susceptible Staphylococcus aureus infection as the cause of diseases classified elsewhere; Z79.899 Other long term (current) drug therapy; T24.201D Burn of second degree of unspecified site of right lower limb, except ankle and foot, subsequent encounter; T24.202D Burn of second degree of unspecified site of left lower limb, except ankle and foot, subsequent encounter; X08.8XXD Exposure to other specified smoke, fire and flames, subsequent encounter
CPT/HCPCS: 36569; 83735; 84100; 84132; 87040; 87070; 87081; 87205; 90471; 90715; 99285; G0480; J1644; J3370; J7030; J7040; J7060

== ENCOUNTER 2017-08-14 15:09 | Emergency (ER) | payer MEDICAID ==
[~2017-08-14] VITALS: Ht 180.3 cm; Wt 89.0 kg
[2017-08-14] MEDS ORDERED: PERTUSS(ACELL),DIPH,TET VAC/PF 0.5 ML VIAL IM ONE (15:45)
[2017-08-14] MEDS ORDERED: VANCOMYCIN HCL 1 GM/D5% WATER 200 ML IV ONE (15:45)
[2017-08-14] MEDS ORDERED: SODIUM CHLORIDE 0.9% 1,000 ML IV ONE (15:45)
[2017-08-14 15:53] LABS: BASOPHILS % (AUTO) 0.7 % (0.0-2.0); EOSINOPHILS % (AUTO) 1.1 % (1.0-6.0); HEMATOCRIT 43.5 % (41-53); HEMOGLOBIN 15.1 g/dL (13.5-17.5); LYMPHOCYTES # (AUTO) 2.3 K/uL (1.0-4.8); LYMPHOCYTES % (AUTO) 14.5 % (22.0-44.0); MEAN CORPUSCULAR HEMOGLOBIN 28.8 pg (26.0-34.0); MEAN CORPUSCULAR HGB CONC 34.8 G/dL (31.0-37.0); MEAN CORPUSCULAR VOLUME 83 fL (80-100); MONOCYTES % (AUTO) 6.6 % (2.0-9.0); NEUTROPHILS # (AUTO) 12.1 K/uL (1.8-7.7); NEUTROPHILS % (AUTO) 77.1 % (40.0-70.0); PLATELET COUNT (AUTO) 702 K/uL (150-450); RED BLOOD CELL COUNT(AUTO) 5.26 MIL/uL (4.50-5.90); RED CELL DISTRIBUTION WIDTH 14.2 % (11.5-14.5)
[2017-08-14 16:11] VITALS: BP 130/72
[2017-08-14 16:29] LABS: ANION GAP 11 mmol/L (8-16); CALCIUM, TOTAL 9.1 mg/dL (8.8-10.5); CARBON DIOXIDE 27 mmol/L (22-29); CHLORIDE 101 mmol/L (98-107); CREATININE 0.82 mg/dL (0.60-1.30); GLOMERULAR FILTR. RATE CALC > 60 mL/min (>60); GLUCOSE,RANDOM 110 mg/dL (70-110); POTASSIUM 3.9 mmol/L (3.5-5.1); SODIUM SERUM 139 mmol/L (136-145); UREA NITROGEN, BLOOD 12 mg/dL (7-18)
[2017-08-14 16:34] LABS: ALANINE AMINOTRANSFERASE 71 U/L (12-78); ALBUMIN 3.6 g/dL (3.4-5.0); ALKALINE PHOSPHATASE 127 U/L (46-116); ASPARTATE AMINOTRANSFERASE 44 U/L (15-37); BILIRUBIN,TOTAL 0.3 mg/dL (0.1-1.0); TOTAL PROTEIN, SERUM 8.9 g/dL (6.4-8.2)
== END 2017-08-14 16:56 | disposition short-term general hospital (02) ==
LOC: EMS 15:11
DX: T24.201A Burn of second degree of unspecified site of right lower limb, except ankle and foot, initial encounter (principal); T24.202A Burn of second degree of unspecified site of left lower limb, except ankle and foot, initial encounter; T31.11 Burns involving 10-19% of body surface with 10-19% third degree burns; D72.829 Elevated white blood cell count, unspecified; F17.210 Nicotine dependence, cigarettes, uncomplicated; X08.8XXA Exposure to other specified smoke, fire and flames, initial encounter; Y93.89 Activity, other specified; Y92.89 Other specified places as the place of occurrence of the external cause; Y99.8 Other external cause status
CPT/HCPCS: 36415; 80053; 85025; 90471; 90715; 96361; 96365; 99285; J3370

== ENCOUNTER 2018-01-13 10:53 | Inpatient (IN) | payer MEDICAID ==
[~2018-01-13] VITALS: Ht 170.2 cm; Wt 95.8 kg
[~2018-01-13 10:53] MED LIST changes: +FISH1 PO; +PALI6 PO; -QUET200T PO; +VENL-53 PO
[2018-01-13 11:49] LABS: BASOPHILS % (AUTO) 0.9 % (0.0-2.0); EOSINOPHILS % (AUTO) 7.4 % (1.0-6.0); HEMATOCRIT 42.4 % (41-53); HEMOGLOBIN 14.5 g/dL (13.5-17.5); LYMPHOCYTES # (AUTO) 1.3 K/uL (1.0-4.8); LYMPHOCYTES % (AUTO) 21.2 % (22.0-44.0); MEAN CORPUSCULAR HEMOGLOBIN 26.9 pg (26.0-34.0); MEAN CORPUSCULAR HGB CONC 34.3 G/dL (31.0-37.0); MEAN CORPUSCULAR VOLUME 78 fL (80-100); MONOCYTES # (AUTO) 0.5 K/uL (0.1-1.0); NEUTROPHILS # (AUTO) 3.6 K/uL (1.8-7.7); NEUTROPHILS % (AUTO) 61.5 % (40.0-70.0); PLATELET COUNT (AUTO) 247 K/uL (150-450); RED BLOOD CELL COUNT(AUTO) 5.42 MIL/uL (4.50-5.90); RED CELL DISTRIBUTION WIDTH 20.6 % (11.5-14.5)
[2018-01-13 11:57] LABS: ANION GAP 5 mmol/L (8-16); CALCIUM, TOTAL 9.1 mg/dL (8.8-10.5); CARBON DIOXIDE 30 mmol/L (22-29); CHLORIDE 99 mmol/L (98-107); CREATININE 0.83 mg/dL (0.60-1.30); GLOMERULAR FILTR. RATE CALC > 60 mL/min (>60); GLUCOSE,RANDOM 117 mg/dL (70-110); POTASSIUM 3.8 mmol/L (3.5-5.1); SODIUM SERUM 134 mmol/L (136-145); UREA NITROGEN, BLOOD 6 mg/dL (7-18)
[2018-01-13 12:04] LABS: ALANINE AMINOTRANSFERASE 24 U/L (12-78); ALBUMIN 3.9 g/dL (3.4-5.0); ALKALINE PHOSPHATASE 74 U/L (46-116); ASPARTATE AMINOTRANSFERASE 20 U/L (15-37); BILIRUBIN,TOTAL 0.3 mg/dL (0.1-1.0); TOTAL PROTEIN, SERUM 7.7 g/dL (6.4-8.2)
[2018-01-13] MEDS ORDERED: HALOPERIDOL 5 MG TABLET PO PRN (13:15)
[2018-01-13 18:39] VITALS: BP 129/78
[2018-01-13 20:16] LABS: AMPHET/METH SCREEN,URINE POSITIVE (NEGATIVE); BARBITURATE SCREEN, URINE NEGATIVE (NEGATIVE); BENZODIAZEPINES SCREEN,URINE NEGATIVE (NEGATIVE); CANNABINOID SCREEN,URINE NEGATIVE (NEGATIVE); COCAINE SCREEN,URINE NEGATIVE (NEGATIVE); METHADONE SCREEN, URINE NEGATIVE (NEGATIVE); OPIATE SCREEN,URINE NEGATIVE (NEGATIVE); PHENCYCLIDINE SCREEN,URINE NEGATIVE (NEGATIVE)
[2018-01-13] MEDS ORDERED: LOPERAMIDE HCL 2 MG CAPSULE PO PRN (20:30)
[2018-01-13] MEDS ORDERED: ALBUTEROL SULFATE HFA 90 MCG/PUFF 8 GM INHALER IH PRN (20:30)
[2018-01-13] MEDS ORDERED: IBUPROFEN 400 MG TABLET PO PRN (20:30)
[2018-01-13] MEDS ORDERED: DOCUSATE SODIUM 100 MG CAPSULE PO PRN (20:30)
[2018-01-13] MEDS ORDERED: MAGNESIUM HYDROXIDE SUSPENSION 30 ML UDCUP PO PRN (20:30)
[2018-01-13] MEDS ORDERED: ONDANSETRON HCL 4 MG TABLET PO PRN (20:30)
[2018-01-13] MEDS ORDERED: CloNIDine HCL 0.1 MG TABLET PO PRN (20:30)
[2018-01-13] MEDS ORDERED: ACETAMINOPHEN 325 MG TABLET PO PRN (20:30)
[2018-01-13] MEDS ORDERED: MAG HYDROX/AL HYDROX/SIMETH ES 30 ML SUSPENSION UDCUP PO PRN (20:30)
[2018-01-13] MEDS ORDERED: GuaiFENesin/D-METHORPHAN [SUGAR-FREE] 200-20MG/10 ML SYRUP UDCUP PO PRN (20:30)
[2018-01-13] MEDS ORDERED: PETROLATUM,WHITE 71 GM JELLY TP PRN (20:30)
[2018-01-14 01:14] LABS: APPEARANCE,URINE TURBID (CLEAR); BILIRUBIN,URINE NEGATIVE (NEGATIVE); GLUCOSE, URINE (UA) NEGATIVE (NEGATIVE); KETONES,URINE NEGATIVE (NEGATIVE); LEUKOCYTE ESTERASE ,URINE NEGATIVE (NEGATIVE); NITRATE,URINE NEGATIVE (NEGATIVE); OCCULT BLOOD,URINE LARGE (NEGATIVE); PH,URINE 7.5 (5.0-8.0); PROTEIN,URINE NEGATIVE (NEGATIVE); UROBILINOGEN,URINE 0.2 mg/dL (<=1.0)
[2018-01-14 02:07] LABS: BACTERIA,URINE Rare /HPF (None Seen); SQUAMOUS EPITHELIAL CELL,UR None Seen /LPF (None Seen); WBC,URINE 0-2 /HPF (0-5)
[2018-01-14 02:08] LABS: AMORPHOUS SEDIMENT,UR Moderate /LPF (None Seen)
[2018-01-14 08:10] VITALS: BP 148/79
[2018-01-14] MEDS: NICOTINE 14 MG/24 HOUR PATCH TD SCH (09:36)
[2018-01-14] MEDS: DIVALPROEX SODIUM 500 MG DR TABLET PO SCH (18:00)
[2018-01-14] MEDS: PALIPERIDONE 3 MG ER TABLET PO SCH (20:26)
[2018-01-14] MEDS: ZOLPIDEM TARTRATE 10 MG TABLET PO PRN (20:26)
[2018-01-14 22:28] VITALS: BP 114/84
[2018-01-15] MEDS: DIVALPROEX SODIUM 500 MG DR TABLET PO SCH ×2 (09:03→17:00)
[2018-01-15] MEDS: NICOTINE 14 MG/24 HOUR PATCH TD SCH (09:04)
[2018-01-15 09:41] VITALS: BP 132/84
[2018-01-15 12:09] LABS: APPEARANCE,URINE CLEAR (CLEAR); BILIRUBIN,URINE NEGATIVE (NEGATIVE); GLUCOSE, URINE (UA) NEGATIVE (NEGATIVE); KETONES,URINE NEGATIVE (NEGATIVE); LEUKOCYTE ESTERASE ,URINE NEGATIVE (NEGATIVE); NITRATE,URINE NEGATIVE (NEGATIVE); OCCULT BLOOD,URINE TRACE (NEGATIVE); PROTEIN,URINE NEGATIVE (NEGATIVE); UROBILINOGEN,URINE 0.2 mg/dL (<=1.0)
[2018-01-15 12:16] LABS: BACTERIA,URINE None Seen /HPF (None Seen); RBC,URINE 0-2 /HPF (0-2); SQUAMOUS EPITHELIAL CELL,UR Rare /LPF (None Seen); WBC,URINE None Seen /HPF (0-5)
[2018-01-15 18:00] VITALS: BP 139/95
[2018-01-15] MEDS: LORazepam 2 MG TABLET PO PRN (19:34)
[2018-01-15] MEDS: PALIPERIDONE 3 MG ER TABLET PO SCH (21:17)
[2018-01-16] MEDS: NICOTINE 14 MG/24 HOUR PATCH TD SCH (09:29)
[2018-01-16] MEDS: DIVALPROEX SODIUM 500 MG DR TABLET PO SCH ×2 (09:29→16:19)
[2018-01-16 12:53] VITALS: BP 131/50
[2018-01-16] MEDS: LORazepam 2 MG TABLET PO PRN (18:14)
[2018-01-16 20:47] VITALS: BP 124/67
[2018-01-16] MEDS: PALIPERIDONE 3 MG ER TABLET PO SCH (21:10)
[2018-01-17] MEDS: DIVALPROEX SODIUM 500 MG DR TABLET PO SCH ×2 (09:12→16:46)
[2018-01-17] MEDS: NICOTINE 14 MG/24 HOUR PATCH TD SCH (09:14)
[2018-01-17] MEDS: LORazepam 2 MG TABLET PO PRN (14:18)
[2018-01-17 20:00] VITALS: BP 113/59
[2018-01-17] MEDS: PALIPERIDONE 3 MG ER TABLET PO SCH (20:36)
[2018-01-17] MEDS: ZOLPIDEM TARTRATE 10 MG TABLET PO PRN (20:37)
[2018-01-18 09:19] VITALS: BP 112/60
[2018-01-18] MEDS: DIVALPROEX SODIUM 500 MG DR TABLET PO SCH ×2 (09:29→16:26)
[2018-01-18] MEDS: NICOTINE 14 MG/24 HOUR PATCH TD SCH (09:30)
[2018-01-18] MEDS ORDERED: DIVA-78 PO (13:09)
[2018-01-18] MEDS ORDERED: PALI3 PO (13:09)
[2018-01-18 19:48] VITALS: BP 117/66
[2018-01-18] MEDS: PALIPERIDONE 3 MG ER TABLET PO SCH (21:28)
[2018-01-19] MEDS: DIVALPROEX SODIUM 500 MG DR TABLET PO SCH (08:43)
[2018-01-19] MEDS: NICOTINE 14 MG/24 HOUR PATCH TD SCH (08:44)
[2018-01-19 10:12] VITALS: BP 109/53
== END 2018-01-19 10:00 | disposition home or self-care (01) | DRG 750 ==
LOC: EMS 10:54 → 3EI 16:52
PROVIDERS: ADMIT Psychiatry & Neurology Psychiatry; ATTEND Psychiatry & Neurology Psychiatry
DX: F25.0 Schizoaffective disorder, bipolar type (principal); E87.1 Hypo-osmolality and hyponatremia; F41.9 Anxiety disorder, unspecified; R31.9 Hematuria, unspecified; F17.210 Nicotine dependence, cigarettes, uncomplicated; F19.10 Other psychoactive substance abuse, uncomplicated; F15.20 Other stimulant dependence, uncomplicated; Z91.14 Patient's other noncompliance with medication regimen; Z79.899 Other long term (current) drug therapy; Z71.6 Tobacco abuse counseling; Z71.51 Drug abuse counseling and surveillance of drug abuser
CPT/HCPCS: G0480

== ENCOUNTER 2021-03-18 13:56 | Emergency (ER) | payer MEDICAID ==
[~2021-03-18 13:56] MED LIST changes: +DIVA-112 PO; -FISH1 PO; +PALI3TAB14 PO; -PALI6 PO; -VENL-53 PO
== END 2021-03-18 14:05 | disposition left against medical advice (07) ==
LOC: EMS 13:56
DX: R07.9 Chest pain, unspecified (principal); Z53.21 Procedure and treatment not carried out due to patient leaving prior to being seen by health care provider

== ENCOUNTER 2024-02-27 15:38 | Emergency (ER) | payer MEDICAID, OTHER ==
[~2024-02-27] VITALS: Ht 175.3 cm; Wt 90.9 kg
[~2024-02-27 15:38] MED LIST changes: +BUSP5TAB20 PO; +PALI234D IM
[2024-02-27 16:12] VITALS: TEMP 97.9
[2024-02-27 16:24] LABS: BASOPHILS % (AUTO) 0.3 % (0.0-2.0); EOSINOPHILS % (AUTO) 0.3 % (1.0-6.0); HEMATOCRIT 43.7 % (41-53); HEMOGLOBIN 14.5 g/dL (13.5-17.5); LYMPHOCYTES # (AUTO) 1.1 K/uL (1.0-4.8); LYMPHOCYTES % (AUTO) 12.8 % (22.0-44.0); MEAN CORPUSCULAR HEMOGLOBIN 28.1 pg (26.0-34.0); MEAN CORPUSCULAR HGB CONC 33.3 G/dL (31.0-37.0); MEAN CORPUSCULAR VOLUME 84 fL (80-100); MONOCYTES # (AUTO) 0.6 K/uL (0.1-1.0); MONOCYTES % (AUTO) 7.3 % (2.0-9.0); NEUTROPHILS % (AUTO) 79.3 % (40.0-70.0); PLATELET COUNT (AUTO) 256 K/uL (150-450); RED BLOOD CELL COUNT(AUTO) 5.18 MIL/uL (4.50-5.90); RED CELL DISTRIBUTION WIDTH 13.7 % (11.5-14.5); WHITE BLOOD COUNT (AUTO) 8.8 K/uL (4.5-11.0)
[2024-02-27 16:37] LABS: ANION GAP 12 mmol/L (8-16); CALCIUM, TOTAL 9.6 mg/dL (8.8-10.5); CARBON DIOXIDE 26 mmol/L (22-29); CHLORIDE 101 mmol/L (98-107); CREATININE 0.99 mg/dL (0.60-1.30); GLOMERULAR FILTR. RATE CALC > 60 mL/min (>60); GLUCOSE,RANDOM 118 mg/dL (70-110); POTASSIUM 3.8 mmol/L (3.5-5.1); SODIUM SERUM 139 mmol/L (136-145); UREA NITROGEN, BLOOD 10 mg/dL (7-18)
[2024-02-27 17:00] LABS: ALCOHOL, BLOOD (SERUM) < 3 mg/dL (0-10)
[2024-02-27 18:32] LABS: COVID AG,FIA SOURCE NASAL SWAB
[2024-02-27 18:59] LABS: SARS-COV2 (COVID) ANTIGEN,FIA Negative (Negative)
[2024-02-27] MEDS: HALOPERIDOL 5 MG TABLET PO ONE (21:01)
[2024-02-27] MEDS: LORazepam 1 MG TABLET PO ONE (21:01)
[2024-02-27 22:15] VITALS: BP 154/96; PULSE 72; RESP 18; O2SAT 95
== END 2024-02-28 02:40 | disposition home or self-care (01) ==
LOC: EMS 15:41
DX: F20.9 Schizophrenia, unspecified (principal); R45.850 Homicidal ideations; Z20.822 Contact with and (suspected) exposure to COVID-19
CPT/HCPCS: 99285; 87426; 80048; 85025; 36415; G0480